=== PATIENT | male | born 1955 | race Caucasian/White ===

== ENCOUNTER 2022-04-11 09:32 | Outpatient (RCR) | payer MEDICARE, SELFPAY | END 2022-04-25 23:59 | disposition home or self-care (01) | LOC: SPT 09:32 | PROVIDERS: PCP Nurse Practitioner Family; Referring Provider Nurse Practitioner Adult Health; Visit Provider Nurse Practitioner Adult Health | DX: M54.16 Radiculopathy, lumbar region (principal); M25.552 Pain in left hip; M54.50 Low back pain, unspecified | CPT/HCPCS: 97110; 97161 ==

== ENCOUNTER 2022-06-06 12:24 | Outpatient (CLI) | payer MEDICARE, SELFPAY ==
--- NOTE | 2022-06-06 12:36 | MR_ITS ---
WS: [id number] MRI LEFT HIP without CONTRAST. COMPARISON: Radiograph 09/27/2021 Multiplanar, multisequence imaging is performed without contrast. Mild narrowing of the hip joints bilaterally. There is very mild loss of the normal contour of the hi ps and the cartilage. Mild narrowing of the joint spaces. No marrow edema or fracture. No muscle atro phy involving the soft tissues surrounding the LEFT hip. There is no joint effusion. No labral tear. There is a small osteophyte from the superior lateral LEFT acetabulum. Visualized SI joints are symmetric. No marrow edema within the sacrum. Prostate gland is enlarged and mildly heterogeneous. Mildly prominent seminal vesicles. MR/MR hip LT wo con* [id number] IMPRESSION: 1. 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 2. No LEFT hip fracture of marrow edema. 3. Small osteophyte from the superior lateral acetabulum. 4. Mild prostate gland enlargement.
--- NOTE | 2022-06-06 12:37 | MR_ITS ---
WS: [id number] MRI LUMBAR SPINE NONCONTRAST HISTORY: Chronic low back pain. LEFT hip pain. No injury. COMPARISON: None available. TECHNIQUE: Sagittal and axial multisequence imaging is submitted. Disc bulging and osteophytes in the cervical canal. Mild encroachment upon the cervical cord at C3-4 and C5-6. Straightening of the normal lumbar lordosis. There is very mild RIGHT curvature of the lumbar spine. Disc spaces are narrowed and desiccated throughout. Most significant at L4-5. Fatty replacement of th e marrow at L4-5. Conus terminates normally at L1. L1-L2: Mild annular disc bulging. No stenosis. Mild facet arthritis. L2-L3: Mild annular disc bulging and osteophytic ridging. Mild ligamentum flavum facet arthritis. Mil d central canal and mild encroachment upon the subarticular recesses, LEFT greater than RIGHT. L3-L4: Mild annular disc bulging. Mild ligamentum flavum and facet arthritis. There is severe central and bilateral subarticular recess stenosis and mild foraminal stenosis. Significant encroachment upo n the traversing L4 nerve roots. L4-L5: Diffuse osteophytic ridging and annular disc bulging. Facet and ligamentum flavum arthritis. T here is at least moderate central with severe bilateral subarticular recess stenosis and moderate zaki ateral foraminal stenosis, RIGHT greater than LEFT. Significant encroachment upon the traversing L5 n erve roots. L5-S1: Mild annular disc bulge. Mild osteophytic ridging. Small central disc protrusion contacts the ventral thecal sac. Only mild central stenosis with moderate bilateral subarticular recess and forami nal stenosis. Greater stenosis on the RIGHT due to combination of the facet osteophyte and disc bulgi ng. Most significant encroachment upon the RIGHT exiting L5 nerve root. MR/MR lumbar spine wo con* [id number] IMPRESSION: 1. Multilevel facet joint arthritis and degenerative spondylitic changes. 2. Severe central, bilateral subarticular recess and mild foraminal stenosis a t L3-4 with significant encroachment on the traversing L4 nerve roots. 3. Moderate central with severe bilateral subarticular recess and moderate for aminal stenosis at L4-5, RIGHT greater than LEFT. Significant encroachment upon the traversing L5 nerve roots. 4. Mild central with moderate bilateral subarticular recess and foraminal sten osis at L5-S1. There is most significant encroachment and stenosis involving th e RIGHT foramen with encroachment upon the RIGHT exiting L5 nerve root. 5. Mild central and bilateral subarticular recess narrowing at L2-3.
== END 2022-06-06 12:25 | disposition home or self-care (01) ==
PROVIDERS: PCP Nurse Practitioner Family; Visit Provider Orthopaedic Surgery Adult Reconstructive Orthopaedic Surgery
DX: M54.16 Radiculopathy, lumbar region (principal); M16.12 Unilateral primary osteoarthritis, left hip; M25.752 Osteophyte, left hip; N40.0 Benign prostatic hyperplasia without lower urinary tract symptoms; M48.07 Spinal stenosis, lumbosacral region; M25.552 Pain in left hip
CPT/HCPCS: 72148; 73721

== ENCOUNTER → 2022-06-28 13:52 | Outpatient (BNVA) | payer MEDICARE, SELFPAY | PROVIDERS: PCP Nurse Practitioner Family; Referring Provider Orthopaedic Surgery Adult Reconstructive Orthopaedic Surgery; Visit Provider Orthopaedic Surgery | DX: M48.062 Spinal stenosis, lumbar region with neurogenic claudication (principal); M54.50 Low back pain, unspecified | CPT/HCPCS: 72110; 99204 ==

== ENCOUNTER → 2022-07-24 10:30 | Outpatient (BNVA) | payer MEDICARE, SELFPAY | PROVIDERS: PCP Nurse Practitioner Family; Visit Provider Anesthesiology Pain Medicine | DX: M79.604 Pain in right leg (principal); M79.605 Pain in left leg; Z87.891 Personal history of nicotine dependence; M48.062 Spinal stenosis, lumbar region with neurogenic claudication; M47.816 Spondylosis without myelopathy or radiculopathy, lumbar region; M51.16 Intervertebral disc disorders with radiculopathy, lumbar region | CPT/HCPCS: 99204 ==

== ENCOUNTER → 2023-02-12 14:31 | Outpatient (BNVA) | payer MEDICARE, SELFPAY | PROVIDERS: PCP Nurse Practitioner Family; Visit Provider Orthopaedic Surgery | DX: M48.062 Spinal stenosis, lumbar region with neurogenic claudication (principal) | CPT/HCPCS: 99214 ==